=== PATIENT | male | born 1980 | race Caucasian/White ===

== ENCOUNTER 2024-10-20 00:33 | Emergency (ER) | payer OTHER ==
[~2024-10-20] VITALS: Ht 175.3 cm; Wt 74.8 kg
[~2024-10-20 00:33] MED LIST: HYDHCL25 PO; TRAZ50 PO
[2024-10-20] MEDS ORDERED: DiphenhydrAMINE HCl 50 MG/ML 1ML Vial IV ONE (00:55)
[2024-10-20] MEDS ORDERED: Haloperidol Lactate Inj. 5 MG/ML Injection IV ONE (00:55)
[2024-10-20 01:29] LABS: Albumin, Blood 4.2 g/dL (3.4-5.0); Albumin/Globulin Ratio 1.4 (0.8-1.8); Bilirubin, Total 0.5 mg/dL (0.1-1.0); Bun/Creatinine Ratio 14.2 (12.0-20.0); Creatinine, Blood 1.06 mg/dL (0.60-1.20); Potassium, Blood 3.6 mmol/L (3.5-5.5); Total Protein, Blood 7.2 g/dL (6.4-8.2)
[2024-10-20] MEDS ORDERED: Lactated Ringer's 1,000 ML IV ONE ×2 (01:30→02:00)
[2024-10-20 01:39] LABS: Magnesium, Blood 1.3 mg/dL (1.6-2.4)
[2024-10-20] MEDS ORDERED: Ondansetron HCl 2 MG / ML 2ML Vial IV ONE (01:45)
[2024-10-20] MEDS ORDERED: Ketorolac Tromethamine 30mg Vial IV ONE (01:45)
[2024-10-20 01:46] LABS: BASOPHILS ABSOLUTE AUTO 0.16 K/mm3 (0.00-0.23); BASOPHILS PERCENT AUTO 1 % (0-2); EOSINOPHILS ABSOLUTE AUTO 0.39 K/mm3 (0.00-0.68); EOSINOPHILS PERCENT AUTO 2 % (0-6); Hematocrit 54.2 % (37.0-53.0); Hemoglobin 18.9 g/dL (13.5-17.5); IMMATURE GRAN ABSOLUTE AUTO 0.18 K/mm3 (0.00-0.10); IMMATURE GRAN PERCENT AUTO 1 % (0-1); LYMPHOCYTES ABSOLUTE AUTO 1.36 K/mm3 (0.84-5.20); LYMPHOCYTES PERCENT AUTO 6 % (21-46); MONOCYTES ABSOLUTE AUTO 1.18 K/mm3 (0.16-1.47); MONOCYTES PERCENT AUTO 5 % (4-13); Mean Corpuscular HGB 30.7 pg (26.0-34.0); Mean Corpuscular HGB Conc 34.9 g/dL (31.5-36.5); Mean Corpuscular Volume 88 fL (80-100); NEUTROPHILS ABSOLUTE AUTO 19.66 K/mm3 (1.96-9.15); NEUTROPHILS PERCENT AUTO 86 % (41-73); RDW Coefficient Variation 12.3 % (11.7-14.2); RDW Standard Deviation 39.9 fL (35.1-46.3); Red Blood Cell Count 6.15 M/mm3 (4.30-5.90); White Blood Cell Count 22.93 K/mm3 (4.00-11.30)
[2024-10-20 01:50] LABS: Platelet Count 206 K/mm3 (150-400)
[2024-10-20] MEDS ORDERED: Magnesium Sulf 2 GM/Water 50ML 50 ML IV ONE (02:00)
[2024-10-20 02:43] LABS: Base Excess Venous -3.4 mmol/L; Bicarbonate Venous 21.4 mmol/L (24.0-30.0); PCO2 Venous 38.8 mmHg (38-42); pH Blood Venous 7.36 (7.34-7.37)
[2024-10-20 04:41] LABS: Hematocrit 45.1 % (37.0-53.0); Hemoglobin 15.6 g/dL (13.5-17.5); Mean Corpuscular HGB 30.6 pg (26.0-34.0); Mean Corpuscular HGB Conc 34.6 g/dL (31.5-36.5); Mean Corpuscular Volume 89 fL (80-100); Mean Platelet Volume 10.9 fL (9.1-12.4); Platelet Count 196 K/mm3 (150-400); RDW Coefficient Variation 12.2 % (11.7-14.2); RDW Standard Deviation 39.8 fL (35.1-46.3); Red Blood Cell Count 5.09 M/mm3 (4.30-5.90); White Blood Cell Count 21.17 K/mm3 (4.00-11.30)
[2024-10-20] MEDS ORDERED: AMOCLA875 PO ×2 (04:54→05:14)
[2024-10-20] MEDS ORDERED: ONDA4ODT MM ×2 (04:54→05:14)
[2024-10-20] MEDS ORDERED: PROM12.5S PR ×2 (04:54→05:14)
[2024-10-20] MEDS ORDERED: Amoxicillin/Clavulanate K 875 MG Tab PO ONE (04:55)
[2024-10-20 05:11] VITALS: BP 115/63
== END 2024-10-20 05:16 | disposition home or self-care (01) ==
LOC: ER 00:33
PROVIDERS: Student in an Organized Health Care Education/Training Program
DX: K52.9 Noninfective gastroenteritis and colitis, unspecified (principal); E86.0 Dehydration; E83.42 Hypomagnesemia; F17.200 Nicotine dependence, unspecified, uncomplicated
CPT/HCPCS: 74177; 80053; 82803; 83690; 83735; 85025; 85027; 96361; 96365-59; 96375; 99284-25; A9270; J1200; J1630; J1885; J2405; J3475; J7120; Q9967